=== PATIENT | female | born 1925 | race Caucasian/White ===

== ENCOUNTER 2017-02-20 20:54 | Emergency (ER) | payer MEDICARE, BC ==
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
[2017-02-20 22:22] LABS: Hematocrit 38.2 % (37.0-47.0); Hemoglobin 12.6 gm/dL (12.5-16.0); Mean Cell Volume 101.3 fl (78-100); Mean Corpuscular Hemoglobin 33.4 pg (27-31); Mean Platelet Volume 11.3 fl (6.0-9.5); Neutrophil % 70.7 % (42-75.0); Platelet Count 248 K/mm3 (150-450); Red Blood Count 3.77 M/mm3 (4.2-5.4); White Blood Count 11.3 K/mm3 (4.0-10.5)
[2017-02-20 22:35] LABS: Albumin * 3.4 gm/dl (3.4-5.0); Anion Gap 13.7 mmol/L (6.8-13.8); BUN/Creatinine Ratio 18.6 (9.0-21.6); Bilirubin, Total 0.4 mg/dL (0.0-1.1); Ca. Corrected For Albumin 10.2 mg/dL (8.4-10.2); Carbon Dioxide 29.9 mmol/L (24-32.6); Potassium 3.6 mmol/L (3.4-4.6); Total Protein 8.4 gm/dL (6.2-8.2)
[2017-02-20 22:41] LABS: Urine Bilirubin Negative (NEGATIVE); Urine Blood 25 /ul (NEGATIVE); Urine Ketone Negative (NEGATIVE); Urine Nitrite Negative (NEGATIVE); Urine Protein Negative (NEGATIVE); Urine Urobilinogen Normal (NORMAL); Urine pH 6.5 pH (5.0-7.0)
[2017-02-20 22:49] LABS: Urine Appearance Clear; Urine Bacteria TRACE; Urine Color Pale Yellow; Urine Hyaline Cast TRACE /LPF; Urine RBC TRACE /hpf (0-5); Urine Transitional Epi Cells TRACE /hpf; Urine WBC None Seen /hpf (0-5)
[2017-02-20 23:49] VITALS: BP 177/82
== END 2017-02-20 23:47 | disposition home or self-care (01) ==
LOC: ER 20:54
PROC: 0T9B7ZZ Drainage of Bladder, Via Natural or Artificial Opening (ICD-10-PCS; principal; 2017-02-20)
DX: S00.03XA Contusion of scalp, initial encounter (principal); M54.5 Low back pain; W18.30XA Fall on same level, unspecified, initial encounter; Z91.81 History of falling; Y92.009 Unspecified place in unspecified non-institutional (private) residence as the place of occurrence of the external cause; E11.9 Type 2 diabetes mellitus without complications; Z79.4 Long term (current) use of insulin; I10 Essential (primary) hypertension

== ENCOUNTER 2017-03-17 10:28 | Observation (INO) | payer MEDICARE, BC ==
--- NOTE | 2017-03-17 10:54 | ERNOTE ---
Dyspnea - General Presenting Symptoms: shortness of breath Time Seen by Provider: 03/17/17 10:31 Source: patient Exam Limitations: no limitations - Immun/Allergies/Home Medications Immunizations: IMMUNIZATION HX Immunizations Up to Date Yes History of Influenza Vaccine Yes Hx Pneumococcal Vaccination Yes Allergies/Adverse Reactions: Allergies codeine Allergy (Verified 03/17/17 11:00) oxycodone HCl [From Percodan] Allergy (Verified 03/17/17 11:00) oxycodone terephthalate [From Percodan] Allergy (Verified 03/17/17 11:00) Penicillins Allergy (Verified 03/17/17 11:00) Home Medications: HOME MEDICATIONS Atenolol [Tenormin] 25 mg PO BID 04/13/14 [Last Taken Unknown] Clopidogrel Bisulfate [Plavix] 75 mg PO DAILY 04/13/14 [Last Taken Unknown] Docusate Sodium [Doc-Q-Lace] 100 mg PO DAILY 04/13/14 [Last Taken Unknown] Furosemide [Lasix] 80 mg PO BID 04/13/14 [Last Taken Unknown] Glucosamine HCl 500 mg PO BID 04/13/14 [Last Taken Unknown] Insulin Glargine,Hum.rec.anlog [Lantus] 10 units SQ BID 04/13/14 [Last Taken Unknown] Multivit-Min/FA/Lycopene/Lut [Centrum Silver Tablet] 1 each PO DAILY 04/13/14 [ Last Taken Unknown] Famotidine 20 mg PO DAILY 03/17/17 [Last Taken Unknown] Isosorbide Mononitrate [Imdur] 60 mg PO DAILY 03/17/17 [Last Taken Unknown] hydrALAZINE HCL [Hydralazine HCl] 5 mg PO QID PRN 03/17/17 [Last Taken Unknown] - History of Present Illness Narrative: Patient states that she has had a cough with yellow sputum for about a week, last night she started to get short of breath and is concerned that she has pneumonia, no history of lung disease. She states that she is diabetic but is not aware of any other medical problems. When she got up to go to the bathroom at 03:00 she vomited once and then vomited again when she got up at 07:00, denies abdominal pain. She states that she saw her PCP about a week ago fro a check up. Physician's note from Dr Falk office from this morning (faxed to the ER) states that she was seen in his office this morning and send to the ER for concerns about possible pneumonia Treatment SURVEY ENGINEER: none Initiating event: Reports: upper resp illness. Denies: out of meds Frequency of episodes: Reports: occassional episodes Modifying Factors ([place]ors[place]): Reports: activity Associated Symptoms-Dyspnea: Reports: chest pain/discomfort - pressure, cough Prior Treatment: Denies: currently on antibiotics Review of Systems - Review of Systems Constitutional: Absent: recent illness, fever EYE: Absent: vision changes ENT: Present: nasal drainage. Absent: sore throat Respiratory: Present: See HPI, shortness of breath, cough Cardiology: Present: chest pain - tightness Gastrointestinal/Abdominal: Present: See HPI, vomiting, diarrhea - one loose BM. Absent: nausea, abdominal pain Genitourinary: Present: no symptoms reported Musculoskeletal: Absent: back pain Neurological: Absent: headache, weakness, numbness - Patient's Past Medical History Patient History - Medical: Diabetes Type 2 Insulin Dependent, Other Patient History - Cardiac/Respiratory: Hypertension Patient History - Cancer: No Hx of Cancer Patient History - Surgical Procedures: Appendectomy, Back Surgery, Cholecystectomy, Hysterectomy Patient History - Other: None LMP (females 10-50): Menopausal - Social History Living Situations: alone Abuse History: No History of abuse Psych History: No pertinent hx Smoking Status: Never smoker Alcohol Use: none Drug Use: none - Immunizations Immunizations Up to Date: Yes Hx Pneumococcal Vaccination: Yes History of Influenza Vaccine: Yes Physical Exam - Physical Exam General Appearance: Present: wd/wn, alert, no apparent distress Head Exam: Present: normal inspection Eye Exam: Normal inspection: bilateral, PERRL: bilateral Ears, Nose, Throat: Present: normal ENT inspection, normal pharynx Neck: Present: normal inspection, nontender Respiratory: Present: no respiratory distress, no accessory muscle use, chest nontender, rales - left base Cardiovascular/Chest: Present: regular rate, rhythm, systolic murmur Gastrointestinal/Abdominal: Present: normal bowel sounds, nondistended, soft, tenderness - diffusly Extremity Exam: Present: pedal edema - trace Neurological Exam: Present: alert Skin Exam: Present: normal color, warm/dry ED Progress - Results and Orders Patient's Lab Results:: I have reviewed the patient's lab results. - Vital Signs Patient's Vital Signs:: I have reviewed the patient's vital signs. Vital Signs: Vital Signs 03/17/17 10:34 Temperature 36.4 C L Pulse Rate 68 Respiratory 15 Rate Blood Pressure 160/137 O2 Sat by Pulse 99 Oximetry - EKG EKG: NSR, other - Q inferior leads, poor R progression anterior leads EKG read: Interp. by me - X-Ray X-Ray #1 X-Ray: chest - left retrocardiac opacity Interpretation: Reviewed by me X-Ray #2 X-Ray: abdomen - non specific bowel gas, stool retention Interpretation: Reviewed by me - Progress/Reassessment Chief Complaint: Upper Respiratory Symptoms Progress Note-Subjective: 03/17/17 12:23 discussed results with patients, offered admission , patient agreed no vomiting here, patient tolerated water 03/17/17 12:25 discussed with xenia Delatorre to admit for observation for pneumonia and UTI Departure Clinical Impression: Pneumonia Qualifiers: Pneumonia type: due to unspecified organism Laterality: left Lung location: lower lobe of lung Qualified Code(s): J18.1 - Lobar pneumonia, unspecified organism UTI (urinary tract infection) Qualifiers: Urinary tract infection type: acute cystitis Hematuria presence: with hematuria Qualified Code(s): N30.01 - Acute cystitis with hematuria - Departure Disposition: [facility] Condition: Stable Referrals: Mainor Soliman DO [Primary Care Provider] -
[2017-03-17 11:21] LABS: Hematocrit 36.3 % (37.0-47.0); Mean Cell Volume 100.6 fl (78-100); Mean Corpuscular Hemoglobin 33.2 pg (27-31); Mean Corpuscular Hgb Conc 33.1 g/dl (32-36); Mean Platelet Volume 11.7 fl (6.0-9.5); Neutrophil # 7.8 K/mm3 (1.3-6.0); Neutrophil % 69.9 % (42-75.0); Platelet Count 272 K/mm3 (150-450); Red Blood Count 3.61 M/mm3 (4.2-5.4); Red Cell Distribution Width 13.2 % (11.5-14.0); White Blood Count 11.2 K/mm3 (4.0-10.5)
[2017-03-17 11:36] LABS: ALT 15 U/L (19-67); AST 24 U/L (0-48); Albumin * 3.3 gm/dl (3.4-5.0); Alkaline Phosphatase * 87 U/L (50-170); Amylase * 55 U/L (25-115); BNP * 1642 pg/mL (5-550); BUN/Creatinine Ratio 15.8 (9.0-21.6); Bilirubin, Total 0.7 mg/dL (0.0-1.1); Blood Urea Nitrogen 35 mg/dL (3-23); Ca. Corrected For Albumin 10.4 mg/dL (8.4-10.2); Calcium * 10.2 mg/dL (7.9-10.9); Chloride 99 mmol/L (97-106); Glucose * 111 mg/dL (70-110); Lipase 148 U/L (73-393); Sodium 137 mmol/L (132-142); Total Protein 8.2 gm/dL (6.2-8.2)
[2017-03-17 11:36] LABS: Urine Bilirubin Negative (NEGATIVE); Urine Blood 250 /ul (NEGATIVE); Urine Ketone Negative (NEGATIVE); Urine Nitrite Negative (NEGATIVE); Urine Protein Negative (NEGATIVE); Urine Urobilinogen Normal (NORMAL)
[2017-03-17 11:49] LABS: Urine Appearance Slightly Cloudy; Urine Color Yellow; Urine WBC 0-5 /hpf (0-5)
[2017-03-17 11:50] LABS: Urine Bacteria 1+
[2017-03-17 11:51] LABS: Troponin I Less than 0.017 ng/ml (0.00-0.10)
[2017-03-17] MEDS ORDERED: AZITHROMYCIN 250 MG TABLET PO STA (12:37)
[2017-03-17] MEDS ORDERED: AZITHROMYCIN 250 MG TABLET ONE (12:55)
[2017-03-17] MEDS ORDERED: ALBUTEROL SULFATE/IPRATROPIUM 3 ML NEBU IH PRN (13:37)
[2017-03-17] MEDS ORDERED: hydrALAZINE HCL 10 MG TABLET PO PRN (21:15)
[2017-03-17] MEDS: GLUCOSAMINE HCL 500 MG PO SCH (22:00)
[2017-03-17] MEDS ORDERED: ATENOLOL 50 MG TABLET ONE (22:04)
[2017-03-17] MEDS: INSULIN GLARGINE,HUM.REC.ANLOG 100 UNITS/ML VIAL SC SCH (22:08)
[2017-03-17] MEDS: ATENOLOL 25 MG TABLET PO SCH (22:08)
[2017-03-18 05:43] LABS: Hematocrit 33.5 % (37.0-47.0); Mean Cell Volume 100.3 fl (78-100); Mean Corpuscular Hemoglobin 32.9 pg (27-31); Mean Corpuscular Hgb Conc 32.8 g/dl (32-36); Mean Platelet Volume 11.9 fl (6.0-9.5); Neutrophil % 71.7 % (42-75.0); Platelet Count 233 K/mm3 (150-450); Red Blood Count 3.34 M/mm3 (4.2-5.4); Red Cell Distribution Width 13.2 % (11.5-14.0); White Blood Count 9.7 K/mm3 (4.0-10.5)
[2017-03-18 05:51] LABS: Anion Gap 9.9 mmol/L (6.8-13.8); BUN/Creatinine Ratio 15.8 (9.0-21.6); Calcium * 9.6 mg/dL (7.9-10.9); Carbon Dioxide 30.7 mmol/L (24-32.6); Potassium 3.6 mmol/L (3.4-4.6)
[2017-03-18 06:37] VITALS: BP 159/53
[2017-03-18] MEDS: INSULIN GLARGINE,HUM.REC.ANLOG 100 UNITS/ML VIAL SC SCH (08:23)
[2017-03-18] MEDS ORDERED: ALBUTEROL SULFATE/IPRATROPIUM 3 ML NEBU IH PRN (08:45)
[2017-03-18] MEDS ORDERED: FUROSEMIDE 80 MG TABLET PO SCH (09:00)
[2017-03-18] MEDS ORDERED: AZITHROMYCIN 250 MG TABLET PO SCH (09:00)
[2017-03-18] MEDS ORDERED: CLOPIDOGREL BISULFATE 75 MG TABLET PO SCH (09:00)
[2017-03-18] MEDS ORDERED: ISOSORBIDE MONONITRATE 60 MG TAB.SR.24H PO SCH (09:00)
[2017-03-18] MEDS ORDERED: ISOSORBIDE MONONITRATE 30 MG TAB.SR.24H PO SCH (09:00)
[2017-03-18] MEDS ORDERED: FUROSEMIDE 40 MG TABLET PO SCH (09:00)
[2017-03-18] MEDS ORDERED: BETA-CAROTENE(A) W-C , E/MIN 1 TAB TABLET PO SCH (09:00)
[2017-03-18] MEDS ORDERED: DOCUSATE SODIUM 100 MG CAPSULE PO SCH (09:00)
[2017-03-18] MEDS ORDERED: FAMOTIDINE 20 MG TABLET PO SCH (09:00)
[2017-03-18] MEDS: ATENOLOL 25 MG TABLET PO SCH (09:08)
[2017-03-18] MEDS: GLUCOSAMINE HCL 500 MG PO SCH (09:10)
[2017-03-18] MEDS ORDERED: NYSTATIN 15 APPL BTL TP SCH (09:45)
--- NOTE | 2017-03-18 10:24 | HP ---
Chief Complaint - Chief Complaint Date of Service: 03/17/17 Time of Service: 14:12 Chief Complaint: Short of breath, cough History of Present Illness: Katerine is an 89 yo female that presented to the [facility] ER after seeing her PCP in clinic. She had a week of progressive cough with sputum, fever, and shortness of breath. She was seen in clinic and directed to the ER due to concerns for pneumonia. Chest xray in the ER showed a left retrocardiac opacity suggestive of pneumonia with leukocytosis. She denies sick contacts or travel. There was no evidence of hypoxia. - Patient's Past Medical History Patient History - Medical: Diabetes Type 2 Insulin Dependent, Other Patient History - Cardiac/Respiratory: Hypertension, CPAP/BiPAP Home Use Patient History - Cancer: No Hx of Cancer Patient History - Surgical Procedures: Appendectomy, Back Surgery, Cholecystectomy, Hysterectomy Patient History - Other: None LMP (females 10-50): Menopausal - Family History Mother Family History - Medical: History Unknown Family History - Cardiac/Respiratory: History Unknown Family History - Cancer: History Unknown Father Family History - Medical: History Unknown Family History - Cardiac/Respiratory: History Unknown Family History - Cancer: History Unknown - Social History Living Situations: alone Abuse History: No History of abuse Psych History: No pertinent hx Smoking Status: Never smoker Have you smoked in the past 12 months: No Patient requests Smoking Cessation Consult: No Initiate information on Smoking Cessation: No Alcohol Use: none Drug Use: none - Immunizations Immunizations Up to Date: Yes Hx Pneumococcal Vaccination: Yes History of Influenza Vaccine: Yes Review Of Systems (GEN) - Review of Systems Generalized/Overall Review: Present: Weakness, Chills, Fever, Malaise EENTM: Present: No Symptoms Reported Respiratory: Present: Cough, Shortness of Breath Cardiac: Absent: Chest Pain, Edema Abdominal: Present: No Symptoms Reported Genitourinary: Present: No Symptoms Reported Musculoskeletal: Present: No Symptoms Reported Neurological: Present: No Symptoms Reported Skin: Present: No Symptoms Reported Endocrine: Present: No Symptoms Reported Immunizations: IMMUNIZATION HX Immunizations Up to Date Yes History of Influenza Vaccine Yes Hx Pneumococcal Vaccination Yes Allergies/Adverse Reactions: Allergies Allergy/AdvReac Type Severity Reaction Status Date / Time codeine Allergy Verified 03/17/17 14:09 oxycodone HCl [From Percodan] Allergy Verified 11/10/17 14:09 oxycodone terephthalate Allergy Verified 03/17/17 14:09 [From Percodan] Penicillins Allergy Verified 03/17/17 14:09 Home Medications: HOME MEDICATIONS Atenolol [Tenormin] 25 mg PO BID 04/13/14 [Last Taken Unknown] Clopidogrel Bisulfate [Plavix] 75 mg PO DAILY 04/13/14 [Last Taken Unknown] Docusate Sodium [Doc-Q-Lace] 100 mg PO DAILY 04/13/14 [Last Taken Unknown] Furosemide [Lasix] 80 mg PO BID 04/13/14 [Last Taken Unknown] Glucosamine HCl 500 mg PO BID 04/13/14 [Last Taken Unknown] Insulin Glargine,Hum.rec.anlog [Lantus] 10 units SQ BID 04/13/14 [Last Taken Unknown] Multivit-Min/FA/Lycopene/Lut [Centrum Silver Tablet] 1 each PO DAILY 04/13/14 [ Last Taken Unknown] Famotidine 20 mg PO BID 03/17/17 [Last Taken Unknown] Isosorbide Mononitrate [Imdur] 60 mg PO DAILY 03/17/17 [Last Taken Unknown] hydrALAZINE HCL [Hydralazine HCl] 5 mg PO QID PRN 03/17/17 [Last Taken Unknown] Azithromycin [Zithromax] 250 mg PO DAILY #4 tablet 03/18/17 [Last Taken Unknown] Cefdinir 300 mg PO BID #20 capsule 03/18/17 [Last Taken Unknown] Nystatin [Mycostatin Powder] 1 appl TP BID #1 btl 03/18/17 [Last Taken Unknown] Exam - Exam Vital Signs: Vital Signs - Last Taken Temp 37 C 03/18/17 07:44 Pulse 63 03/18/17 09:08 Resp 18 03/18/17 07:44 BP 159/53 03/18/17 09:08 Pulse Ox 100 03/18/17 07:44 Constitutional: Present: Alert, Oriented x3, Cooperative ENT Exam: Present: hearing grossly normal Eye Exam: bilateral eye: normal inspection Respiratory: Present: crackles - LLL Cardiovascular/Chest: Present: regular rate, rhythm, no murmur Abdomen: Present: Normal bowel sounds, soft, nontender, nondistended Skin Exam: Present: normal color, warm/dry, no cyanosis Appearance: Present: appropriate appearance, appropriate insight Eye contact: Present: cooperative, good eye contact, normal speech Thoughts: Present: normal thought pattern, no apparent hallucination Diagnostic Studies: Abnormal Lab Results 03/18/17 03/18/17 Range/Units 05:00 05:00 RBC 3.34 L (4.2-5.4) M/mm3 Hgb 11.0 L (12.5-16.0) gm/dL Hct 33.5 L (37.0-47.0) % MCV 100.3 H (78-100) fl MCH 32.9 H (27-31) pg MPV 11.9 H (6.0-9.5) fl Immature Gran % (Auto) 0.50 H (0.001-0.429) % Immature Gran # (Auto) 0.05 H (0.000-0.0310) K/mm3 Lymphocytes % 14.9 L (20-51) % Monocytes % 10.0 H (0.0-9) % Neutrophils # 7.0 H (1.3-6.0) K/mm3 Lymphocytes # 1.4 L (1.5-3.5) k/mm3 BUN 32 H (3-23) mg/dL Creatinine 2.02 H (0.4-1.4) mg/dL Est GFR (Non-Af Amer) 25 L (60-130) mL/min Random Glucose 124 H (70-110) mg/dL Laboratory Results WBC 9.7 K/mm3 (4.0-10.5) 03/18/17 05:00 RBC 3.34 M/mm3 (4.2-5.4) L 03/18/17 05:00 Hgb 11.0 gm/dL (12.5-16.0) L 03/18/17 05:00 Hct 33.5 % (37.0-47.0) L 03/18/17 05:00 MCV 100.3 fl (78-100) H 03/18/17 05:00 MCH 32.9 pg (27-31) H 03/18/17 05:00 MCHC 32.8 g/dl (32-36) 03/18/17 05:00 RDW 13.2 % (11.5-14.0) 03/18/17 05:00 Plt Count 233 K/mm3 (150-450) 03/18/17 05:00 MPV 11.9 fl (6.0-9.5) H 03/18/17 05:00 Immature Gran % (Auto) 0.50 % (0.001-0.429) H 03/18/17 05:00 Immature Gran # (Auto) 0.05 K/mm3 (0.000-0.0310) H 03/18/17 05:00 Neutrophils % 71.7 % (42-75.0) 03/18/17 05:00 Lymphocytes % 14.9 % (20-51) L 03/18/17 05:00 Monocytes % 10.0 % (0.0-9) H 03/18/17 05:00 Eosinophils % 2.7 % (0.0-3.0) 03/18/17 05:00 Basophils % 0.2 % (0.0-1.0) 03/18/17 05:00 Nucleated RBC % 0.0 k/mm3 (0-1) 03/18/17 05:00 Neutrophils # 7.0 K/mm3 (1.3-6.0) H 03/18/17 05:00 Lymphocytes # 1.4 k/mm3 (1.5-3.5) L 03/18/17 05:00 Monocytes # 1.0 k/mm3 (0.0-1.0) 03/18/17 05:00 Eosinophils # 0.3 k/mm3 (0.0-0.7) 03/18/17 05:00 Absolute Basophils 0.0 k/mm3 (0.0-0.1) 03/18/17 05:00 Sodium 138 mmol/L (132-142) 03/18/17 05:00 Plasma Sodium 138 mmol/L (130-142) 03/18/17 05:00 Potassium 3.6 mmol/L (3.4-4.6) 03/18/17 05:00 Chloride 101 mmol/L (97-106) 03/18/17 05:00 Carbon Dioxide 30.7 mmol/L (24-32.6) 03/18/17 05:00 Anion Gap 9.9 mmol/L (6.8-13.8) 03/18/17 05:00 BUN 32 mg/dL (3-23) H 03/18/17 05:00 Creatinine 2.02 mg/dL (0.4-1.4) H 03/18/17 05:00 Est GFR (Non-Af Amer) 25 mL/min (60-130) L 03/18/17 05:00 BUN/Creatinine Ratio 15.8 (9.0-21.6) 03/18/17 05:00 Random Glucose 124 mg/dL (70-110) H 03/18/17 05:00 Calcium 9.6 mg/dL (7.9-10.9) 03/18/17 05:00 Calcium Adj for Albumin 10.4 mg/dL (8.4-10.2) H 03/17/17 11:00 Total Bilirubin 0.7 mg/dL (0.0-1.1) 03/17/17 11:00 AST 24 U/L (0-48) 03/17/17 11:00 ALT 15 U/L (19-67) L 03/17/17 11:00 Alkaline Phosphatase 87 U/L (50-170) 03/17/17 11:00 Troponin I Less than 0.017 ng/ml (0.00-0.10) 03/17/17 11:00 B-Natriuretic Peptide 1642 pg/mL (5-550) H 03/17/17 11:00 Total Protein 8.2 gm/dL (6.2-8.2) 03/17/17 11:00 Albumin 3.3 gm/dl (3.4-5.0) L 03/17/17 11:00 Amylase 55 U/L (25-115) 03/17/17 11:00 Lipase 148 U/L (73-393) 03/17/17 11:00 Urine Color Yellow 03/17/17 11:15 Urine Appearance Slightly cloudy 03/17/17 11:15 Urine pH 7.0 pH (5.0-7.0) 03/17/17 11:15 Ur Specific [place] 1.010 SP.GR. (1.005-1.010) 03/17/17 11:15 Urine Protein Negative mg/dL (NEGATIVE) 03/17/17 11:15 Urine Glucose (UA) Negative mg/dL (NEGATIVE) 03/17/17 11:15 Urine Ketones Negative mg/dL (NEGATIVE) 03/17/17 11:15 Urine Blood 250 /ul (NEGATIVE) H 03/17/17 11:15 Urine Nitrate Negative (NEGATIVE) 03/17/17 11:15 Urine Bilirubin Negative mg/dl (NEGATIVE) 03/17/17 11:15 Urine Urobilinogen Normal EU/dl (NORMAL) 03/17/17 11:15 Ur Leukocyte Esterase 75 /ul (NEGATIVE) H 03/17/17 11:15 Urine RBC 10-25 /hpf (0-5) H 03/17/17 11:15 Urine WBC 0-5 /hpf (0-5) 03/17/17 11:15 Ur Epithelial Cells 0-5 /hpf (0-5) 03/17/17 11:15 Urine Bacteria 1+ (NONE) H 03/17/17 11:15 Urine Culture Comments Culture to follow 03/17/17 11:15 Assessment/Plan - Assessment/Plan (1) Pneumonia Assessment: Katerine is an 89yo female with community acquired pneumonia. Based on a CURB-65 severity score she had two points for age and elevated BUN. This gave her a risk of 30-day all cause mortality of 6.8% and because of this I will admit her to observation and begin treatment with rocephin and azitromycin. Will monitor respiratory status and WBC. Expect 1 midnight stay. Problem: Acute Qualifiers: Pneumonia type: due to unspecified organism Laterality: left Lung location: lower lobe of lung Qualified Code(s): J18.1 - Lobar pneumonia, unspecified organism
--- NOTE | 2017-03-18 10:28 | DS ---
(1) Pneumonia Problem: Acute Qualifiers: Pneumonia type: due to unspecified organism Laterality: left Lung location: lower lobe of lung Qualified Code(s): J18.1 - Lobar pneumonia, unspecified organism (2) Intertrigo Diagnosis(s): Treated with nystatin. Problem: Acute Description of Stay: Katerine is an 89yo female admitted with community acquired pneumonia with a CURB 65 of 2 with a 6.8% risk of 30 days all cause mortality. She was admitted to observation and started on rocephin and azithromycin. She did well and felt better. Leukocytosis resolved to normal. She was feeling well enough for discharge and was changed to oral antibiotics (azithromycin and cefdinir) on the following day. Procedures Performed: none Discharge Disposition: Home self care Disposition: Home self-care Condition: Good Discharge Activity: Activity as tolerated Discharge Diet: General/regular food Referrals: Mainor Soliman DO [Primary Care Provider] - One Week Problem Oriented Discharge Instructions to Patient/Family: Community-Acquired Pneumonia, Adult, [id number] Additional Patient Instructions (free text): Resume services with [facility]. Please fax orders and call report upon discharge. Follow up with Dr. Soliman 03/24 at 9:20. Prescriptions (Any new or edited meds): Azithromycin [Zithromax] 250 mg PO DAILY #4 tablet Cefdinir 300 mg PO BID #20 capsule Nystatin [Mycostatin Powder] 1 appl TP BID #1 btl Complete Home Medications List: Complete Home Medication List: Atenolol [Tenormin] 25 mg PO BID 04/13/14 Clopidogrel Bisulfate [Plavix] 75 mg PO DAILY 04/13/14 Docusate Sodium [Doc-Q-Lace] 100 mg PO DAILY 04/13/14 Furosemide [Lasix] 80 mg PO BID 04/13/14 Glucosamine HCl 500 mg PO BID 04/13/14 Insulin Glargine,Hum.rec.anlog [Lantus] 10 units SQ BID 04/13/14 Multivit-Min/FA/Lycopene/Lut [Centrum Silver Tablet] 1 each PO DAILY 04/13/14 Famotidine 20 mg PO BID 03/17/17 Isosorbide Mononitrate [Imdur] 60 mg PO DAILY 03/17/17 hydrALAZINE HCL [Hydralazine HCl] 5 mg PO QID PRN 03/17/17 Azithromycin [Zithromax] 250 mg PO DAILY #4 tablet 03/18/17 Cefdinir 300 mg PO BID #20 capsule 03/18/17 Nystatin [Mycostatin Powder] 1 appl TP BID #1 btl 03/18/17
== END 2017-03-18 11:40 | disposition home or self-care (01) ==
LOC: ER 10:28 → MS 12:31
PROVIDERS: ADMIT Family Medicine; ATTEND Family Medicine
DX: J18.1 Lobar pneumonia, unspecified organism (principal); N30.01 Acute cystitis with hematuria; L30.4 Erythema intertrigo; E11.9 Type 2 diabetes mellitus without complications; Z79.4 Long term (current) use of insulin; I10 Essential (primary) hypertension; Z68.33 Body mass index [BMI] 33.0-33.9, adult
CPT/HCPCS: 36415; 71020; 74020; 80048; 80053; 81001; 82150; 83690; 83880; 84484; 85025; 87040; 87086; 93005; 94660; 96365; 96372; 99284; G0378